=== PATIENT | female | born 1995 | race Caucasian/White ===

== ENCOUNTER 2021-11-02 18:52 | Inpatient (IN) ==
[2021-11-02] MEDS ORDERED: ceFAZolin 2000MG 2,000 MG/15 ML SYR IV STA (19:08)
[2021-11-02] MEDS ORDERED: OXYTOCIN 30 UNITS/500 ML BAG IV PRN (19:08)
[2021-11-02] MEDS: LACTATED RINGER'S 1,000 ML IV PRN ×2 (19:16→20:52)
--- NOTE | 2021-11-02 19:17 | History & Physical Report ---
Date of Service November 02, 2021 Assessment & Plan (1) with 39 completed weeks gestation: (2) Group beta Strep positive: (3) PROM (premature rupture of membranes): Plan: admit, iv, labs. variables improved with position change. plan ivf bolus as well. likely will request epidural. History of Present Illness Chief Complaint: PROM 540p Primary Care Provider: [facility] 26yo at 39+wks ega presents to L&D with cc of PROM. Pt arrived by ambulance. Apparently after calling with leaking and told to come in, was presyncopal on toilet and ambulance called. On arrival now notes contractions. Continued clear leak. Variables on monitor. PNC c/b 1. gbs pos 2. anxiety 3. epilepsy PNL rh pos, ri, gbs pos OBH: g1 GYNH: no stds Allergies Allergy/AdvReac Type Severity Reaction Status Date / Time Sulfa (Sulfonamide AdvReac Unknown Rash Verified 11/02/21 19:12 Antibiotics) Penicillins AdvReac Rash Verified 11/02/21 19:12 Home Medications Medication Instructions Recorded Confirmed Type folic acid 1 tab PO DAILY 03/20/21 11/02/21 History prenat.vits,chepe,[id number] 1 tab PO DAILY 03/20/21 11/02/21 History levetiracetam 750 mg tablet 2,000 mg PO BID tab 08/20/21 11/02/21 History (Keppra) escitalopram oxalate 5 mg tablet 10 mg PO DAILY tab 10/15/21 11/02/21 History (Lexapro) lamotrigine 200 mg tablet 500 mg PO .am tab 10/15/21 11/02/21 History (Lamictal) lamotrigine 200 mg tablet 550 mg PO PM tab 10/15/21 11/02/21 History (Lamictal) Patient History Medical History (Updated 11/02/21 @ 19:15 by Zaina Matamoros MD, FACOG) Asthma controlled, denies inhaler use Attention deficit disorder Depression Generalized idiopathic epilepsy and epileptic syndromes, not intractable, without status epilepticus follows with neuro through [facility] Surgical History (Updated 11/02/21 @ 19:11 by Cindy Woo RN) H/O adenoidectomy 2014 [place] teeth removed 1998 Family History Mother Heart disease Hypertension Father Heart disease ADHD Denies family history of Ovarian cancer Prostate cancer Breast cancer Colorectal cancer Social History (Updated 03/20/21 @ 10:05 by Lianet Cuellar, SARAY) Smoking Status: Never smoker Second Hand Exposure: No; Hx Alcohol Use: No Hx Substance Use: No Preferred Language: Jordanian Communication Ability: Effective Visual Impairment: No Limitations Hearing Ability: Normal Milk Drier Required: No Beliefs That Will Affect Care: None marital status: marital status details: Kael Newman (26) [phone] Current Living Situation: Spouse Current Living Situation Comment: Lives with , 1 dog, and 1 cat current occupational status: employed and student 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 [employer] Other Information That Helps Us Care for You: No other: Getting PhD in chemistry Feels Safe at Home: Yes Safety Concerns: Feels Safe At This Time Assistive Devices: Contacts and Glasses Review of Systems as per Subjective / HPI Physical Exam Constitutional: WD/WN, vitals as above Respiratory: normal respiratory effort, lungs clear to auscultation Cardiovascular: Rate/Rhythm: regular rate and regular rhythm Gastrointestinal (Abdomen): soft gravid nt efw 7-8# Musculoskeletal: no edema nontender calves Neurologic: grossly normal Psychiatric: A+Ox3, euthymic affect Genitourinary: OB Exam Abdomen: + vertex (by U/S) and + estimated weight (7-8#) Manual OB Exam: + cervical dilation (2), + cervical effacement 90%, + station -2 and + amniotic fluid (Gross rupture) clear OB Exam Monitor Tracing: + external FHT monitor used, + external uterine monitor used (q3), + category II, + normal FHT variability and + variable decelerations (initially deep variables, with pos change improved. ) Results & Data ([facility]) Vital Signs (Past 12 Hours) Vital Signs Temp Pulse Resp BP 11/02/21 18:54 99.3 F 83 20 124/66 Coding Level of Care Code None Diagnoses with 39 completed weeks gestation Z3A.39 Group beta Strep positive B95.1 PROM (premature rupture of membranes) O42.90
[2021-11-02] MEDS ORDERED: Patient's HEIGHT &/or WEIGHT Needed SCH (19:30)
[2021-11-02] MEDS ORDERED: BUPIVACAINE 0.25% 30 ML VIAL ONE (19:41)
[2021-11-02] MEDS ORDERED: fentaNYL citrate 100 MCG/2 ML VIAL ONE (19:41)
[2021-11-02] MEDS ORDERED: ePHEDrine sulfate 50 MG/ML AMP ONE (19:41)
[2021-11-02] MEDS ORDERED: SODIUM CHLORIDE 0.9% INJ 10 ML VIAL ONE (19:41)
[2021-11-02] MEDS ORDERED: fentaNYL 2MCG/ML ROPIVACAINE 1.25MG/ML 100 ML BAG EPI ONE (19:42)
[2021-11-02 19:43] LABS: Hematocrit (blood only) 35.9 % (37-47); Hemoglobin 11.9 g/dL (12.0-16.0); Mean Corpuscular Hemoglobin 29.8 pg (25-34); Mean Corpuscular Hgb Conc 33.1 g/dL (32-36); Mean Platelet Volume 8.7 fL (7.4-10.4); Platelet Count 323 K/uL (130-400); RDW Coefficient of Variation 13.6 % (11.5-14.5); RDW Standard Deviation 44.6 fL (36.4-46.3); Red Blood Count 3.99 M/uL (4.2-5.4); White Blood Count 11.63 K/uL (4.8-10.8)
--- NOTE | 2021-11-02 19:53 | Anesthesiology Consultation ---
Date of Service November 02, 2021 Assessment & Plan ASA ASA2 Proposed Anesthesia Anesthesia Type: Labor Epidural Risk / Benefits Reviewed With: PT / POA / Parent / Guardian, Accepts Plan and Informed Consent Obtained History Height/Weight Height: 5 ft 7 in Weight: 93.894 kg Allergies Allergy/AdvReac Type Severity Reaction Status Date / Time Sulfa (Sulfonamide AdvReac Unknown Rash Verified 11/02/21 19:12 Antibiotics) Penicillins AdvReac Rash Verified 11/02/21 19:12 Medications Home Medications Medication Instructions Recorded Confirmed Last Taken folic acid 1 tab PO DAILY 03/20/21 11/02/21 11/01/21 21:00 prenat.vits,chepe,[id number] 1 tab PO DAILY 03/20/21 11/02/21 11/01/21 21:00 levetiracetam 750 mg tablet 2,000 mg PO BID tab 08/20/21 11/02/21 11/02/21 08:00 (Keppra) escitalopram oxalate 5 mg tablet 10 mg PO DAILY tab 10/15/21 11/02/21 11/02/21 08:00 (Lexapro) lamotrigine 200 mg tablet 500 mg PO .am tab 10/15/21 11/02/21 11/02/21 08:00 (Lamictal) lamotrigine 200 mg tablet 550 mg PO PM tab 10/15/21 11/02/21 11/01/21 20:00 (Lamictal) Active Medications Generic Name Dose Route Start Last Admin Trade Name Freq PRN Reason Stop Dose Admin Lactated Ringer's 1,000 mls @ 125 mls/hr 11/02/21 19:08 11/02/21 19:46 Lr IV 11/04/21 19:07 125 mls/hr .Q8H PRN Infusion L&D Protocol Protocol Past Medical History Medical History (Updated 11/02/21 @ 19:15 by Zaina Matamoros MD, FACOG) Asthma controlled, denies inhaler use Attention deficit disorder Depression Generalized idiopathic epilepsy and epileptic syndromes, not intractable, w ithout status epilepticus follows with neuro through [facility] Exercise / Class Metabolic Activity II 4-5 Yardwork/Stairs/Walk up hill Past Family History Family History Mother Heart disease Hypertension Father Heart disease ADHD Denies family history of Ovarian cancer Prostate cancer Breast cancer Colorectal cancer Past Surgical History Surgical History (Updated 11/02/21 @ 19:11 by Cindy Woo RN) H/O adenoidectomy 2015 [place] teeth removed 1998 Past Anesthesia History No Hx of Anesthesia Complications and No Family Hx of Anesthesia Complications History of PONV No Hx of PONV and No Hx of Motion Sickness Social History Smoking Status: Never smoker Hx Alcohol Use: No Hx Substance Use: No substance use type: does not use Review of Systems denies fever/cough/ colds/ chest pain/ SOB/ ALEIDA denies ALEIDA Physical Exam Vital Signs Last Vital Signs Temp 37.4 C 11/02/21 19:15 Pulse 100 H 11/02/21 19:51 Resp 20 11/02/21 19:15 BP 124/66 11/02/21 19:15 Pulse Ox 100 11/02/21 19:51 ENMT Mouth: no TMJ abnormality and no dentition abnormality Thyromental Distance: > or= 3.5 Finger Breadths Mallampati Class: II Neck neck extension not limited Respiratory normal respiratory effort; no respiratory distress Auscultation: lungs clear to auscultation bilaterally Cardiovascular Rate/Rhythm: regular rate and regular rhythm Neurologic moves all extremities Psychiatric Orientation: alert and oriented x 3 Testing Laboratory Results 11/02/21 19:25
[2021-11-02] MEDS ORDERED: NALOXONE HCL 1 MG in SODIUM CHLORIDE 0.9% 1000ML 1,000 ML IV PRN (19:55)
[2021-11-02] MEDS ORDERED: ePHEDrine sulfate 50 MG/ML AMP IV PRN (19:55)
[2021-11-02] MEDS ORDERED: diphenhydrAMINE 50 MG/ML VIAL IV PRN (19:55)
[2021-11-02] MEDS ORDERED: fentaNYL 2MCG/ML ROPIVACAINE 1.25MG/ML 100 ML BAG EPI PRN (19:55)
[2021-11-02] MEDS ORDERED: NALOXONE HCL 0.4 MG/1 ML VIAL/CARP IV PRN (19:55)
[2021-11-02] MEDS ORDERED: NALBUPHINE HCL INJ 10 MG/ML AMP IV PRN (19:55)
--- NOTE | 2021-11-02 20:46 | Labor Progress Brief Note ---
Date of Service November 02, 2021 Subjective ctsp due to variable decels. pt did get her epidural and when nurse tried to remove O2, decels restarted. Assessment & Plan (1) with 39 completed weeks gestation: (2) Group beta Strep positive: (3) PROM (premature rupture of membranes): Plan: bolus started, o2 applied and position change, fhts improving. variables are relieved. iupc placed in case of need to try amnioinfusion. will also be able to assess strength of this spont labor pattern which so far seems adequate by mvu's in this first 10min. explained all to couple and possible need for c/s has been discussed this time and when she first arrived due to early labor and variables. Admission and Anticipated Discharge Date Admission Date: November 02, 2021 Physical Exam Constitutional: WD/WN, vitals as above Genitourinary: Manual OB Exam: + cervical dilation (with ctx) 3 cm, + cervical effacement 100%, + station -2 and + amniotic fluid (forebag arom) clear OB Exam Monitor Tracing: + external FHT monitor used, + external uterine monitor used (q2 spont labor), + intra-uterine pressure catheter used (placed to consider amnioinfusion.), + category II, + normal FHT variability and + variable decelerations now after iupc placed looks like baseline 140 and ?early decels Results & Data ([facility]) Vital Signs (Past 12 Hours) Vital Signs Temp Pulse Resp BP Pulse Ox 11/02/21 20:37 98 H 100 11/02/21 20:34 94 H 116/61 11/02/21 20:32 105 H 100 11/02/21 20:28 93 H 113/62 11/02/21 20:27 100 H 100 11/02/21 20:22 100 H 99 11/02/21 20:21 108 H 109/58 L 11/02/21 20:19 101 H 115/60 11/02/21 20:18 104 H 115/63 11/02/21 20:17 104 H 100 11/02/21 20:15 97 H 129/75 11/02/21 20:12 93 H 100 11/02/21 20:07 100 H 100 11/02/21 20:02 110 H 100 11/02/21 19:56 104 H 100 06/05/22 19:51 100 H 100 11/02/21 19:15 99.3 F 83 20 124/66 11/02/21 18:54 99.3 F 83 20 124/66 Coding Level of Care Code None Diagnoses with 39 completed weeks gestation Z3A.39 Group beta Strep positive B95.1 PROM (premature rupture of membranes) O42.90
[2021-11-02] MEDS ORDERED: OR MISCELLANEOUS MED XX ONE (21:11)
[2021-11-02] MEDS ORDERED: lamoTRIgine 25 MG TAB PO SCH (21:30)
[2021-11-02] MEDS: lamoTRIgine 100 MG TAB PO SCH (21:44)
[2021-11-02] MEDS: levETIRAcetam 500 MG TAB PO SCH (21:47)
--- NOTE | 2021-11-03 | Labor Progress Brief Note ---
Date of Service November 02, 2021 Subjective comfortable Assessment & Plan (1) with 39 completed weeks gestation: (2) Group beta Strep positive: (3) PROM (premature rupture of membranes): Plan: good cx change. fetus tolerating labor, fhts categ 1. stable. Admission and Anticipated Discharge Date Admission Date: November 02, 2021 Physical Exam Constitutional: WD/WN, vitals as above Genitourinary: Manual OB Exam: + cervical dilation 6 cm, + cervical effacement (100) and + station 0 OB Exam Monitor Tracing: + external FHT monitor used, + intra-uterine pressure catheter used (q2 adequate mvu's spont pattern), + category I and + normal FHT variability Results & Data ([facility]) Vital Signs (Past 12 Hours) Vital Signs Temp Pulse Resp BP Pulse Ox 11/02/21 23:57 112 H 96 11/02/21 23:52 104 H 94 11/02/21 23:47 108 H 95 11/02/21 23:44 107 H 114/63 11/02/21 23:42 104 H 95 11/02/21 23:37 100 H 94 11/02/21 23:32 107 H 94 11/02/21 23:30 18 11/02/21 23:27 106 H 95 11/02/21 23:22 105 H 95 11/02/21 23:17 104 H 95 11/02/21 23:13 107 H 112/60 11/02/21 23:12 105 H 94 11/02/21 23:07 106 H 95 11/02/21 23:02 102 H 95 11/02/21 23:00 16 11/02/21 22:59 98 H 120/64 11/02/21 22:57 99 H 95 11/02/21 22:52 102 H 96 11/02/21 22:47 100 H 96 11/02/21 22:44 100 H 117/64 11/02/21 22:42 103 H 95 11/02/21 22:37 102 H 98 11/02/21 22:32 100 H 99 11/02/21 22:30 18 11/02/21 22:28 108 H 122/72 11/02/21 22:27 97 H 100 11/02/21 22:26 99.1 F 11/02/21 22:22 100 H 99 11/02/21 22:17 98 H 100 11/02/21 22:15 96 H 121/70 11/02/21 22:12 95 H 100 11/02/21 22:07 97 H 100 11/02/21 22:02 97 H 100 11/02/21 22:00 16 11/02/21 21:58 93 H 122/68 11/02/21 21:57 89 100 11/02/21 21:52 86 100 11/02/21 21:47 92 H 99 11/02/21 21:44 88 125/70 11/02/21 21:42 89 100 11/02/21 21:37 92 H 100 11/02/21 21:32 84 100 11/02/21 21:30 92 H 16 128/77 11/02/21 21:27 105 H 100 11/02/21 21:22 94 H 100 11/02/21 21:17 99 H 100 11/02/21 21:13 101 H 120/69 11/02/21 21:12 93 H 100 11/02/21 21:10 97 H 91 11/02/21 21:07 98 H 100 11/02/21 21:02 97 H 100 11/02/21 21:00 20 11/02/21 20:59 96 H 115/65 11/02/21 20:57 99 H 100 11/02/21 20:52 95 H 100 11/02/21 20:47 101 H 100 11/02/21 20:43 98.8 F 96 H 110/56 L 11/02/21 20:42 98 H 100 11/02/21 20:38 99 H 116/57 L 11/02/21 20:37 98 H 100 11/02/21 20:34 94 H 116/61 11/02/21 20:32 105 H 100 11/02/21 20:30 18 11/02/21 20:28 93 H 113/62 11/02/21 20:27 100 H 100 11/02/21 20:22 100 H 99 11/02/21 20:21 108 H 109/58 L 11/02/21 20:19 101 H 115/60 11/02/21 20:18 104 H 115/63 11/02/21 20:17 104 H 100 11/02/21 20:15 97 H 129/75 11/02/21 20:12 93 H 100 06/05/22 20:07 100 H 100 11/02/21 20:02 110 H 100 11/02/21 19:56 104 H 100 11/02/21 19:51 100 H 100 11/02/21 19:15 99.3 F 83 20 124/66 11/02/21 18:54 99.3 F 83 20 124/66 Coding Level of Care Code None Diagnoses with 39 completed weeks gestation Z3A.39 Group beta Strep positive B95.1 PROM (premature rupture of membranes) O42.90
[2021-11-03] MEDS ORDERED: NURSING L&D Epidural Breakthrough Pain Update ONE (00:17)
[2021-11-03] MEDS ORDERED: fentaNYL citrate 100 MCG/2 ML VIAL ONE (00:57)
[2021-11-03] MEDS ORDERED: BUPIVACAINE 0.25% 30 ML VIAL ONE (00:58)
--- NOTE | 2021-11-03 01:17 | Communication Note ---
Date of Service: November 03, 2021 pt has had to stay on her right side because of baby intolerance to other positions. pt is c/o increased pain. i bolused 5mL of .25% bupivicaine + 100 mcg of fentanyl. pt improvement of symptoms.
[2021-11-03] MEDS ORDERED: ceFAZolin 1000MG 1,000 MG/7.5 ML SYR IV PRN (02:08)
[2021-11-03] MEDS ORDERED: LIDOCAINE 1% LOCAL 20 ML VIAL ONE (04:30)
--- NOTE | 2021-11-03 04:45 | Delivery Summary ---
Vaginal Delivery Summary Date of Service November 03, 2021 Vaginal Delivery Summary and 2nd Degree LAC The patient dilated to complete and pushed to deliver a viable male infant Apgars 8 and 9 via over 2nd degree perineal laceration. Mouth and nose bulb suctioned at perineum. Shoulders and body delivered with ease. Infant was vigorous and crying at . Cord clamped at 30 seconds of life and to maternal abdomen where the cord was then doubly clamped and cut. Placenta delivered spontaneously and intact, three-vessel cord. Hemostasis achieved with dilute pitocin and uterine massage and drainage of the bladder for approximately 300 cc under sterile conditions. Cervix and sulci intact. Laceration repaired after 1% local lidocaine anesthesia to include the 2nd degree perineal laceration in routine fashion, layers and reapproximation of left labial laceration. EBL 500 cc. Mother and baby stable in recovery. [facility] Vaginal Delivery Charge Delivery Type Details: and 2nd Degree LAC
[2021-11-03] MEDS ORDERED: bisacodyL 10 MG SUPP PR PRN (04:55)
[2021-11-03] MEDS ORDERED: OXYTOCIN 30 UNITS/500 ML BAG IV PRN (04:55)
[2021-11-03] MEDS ORDERED: DIPHTHERIA/TETANUS/PERTUSSIS 0.5 ML SYR/VIAL IM ONE (04:55)
[2021-11-03] MEDS ORDERED: HYDROCORTISONE ACETATE 25 MG SUPP PR PRN (04:55)
[2021-11-03] MEDS ORDERED: oxyCODONE/ACETAMINOPHEN 5mg/325mg TAB PO PRN (04:55)
[2021-11-03] MEDS ORDERED: ACETAMINOPHEN 325 MG TAB PO PRN (04:55)
[2021-11-03] MEDS ORDERED: OXYTOCIN 20 UNITS in LACTATED RINGER'S 1,000 ML IV SCH (04:55)
[2021-11-03] MEDS ORDERED: BENZOCAINE 20% AER SPR 82.5 GM CAN EXT PRN (04:55)
[2021-11-03] MEDS: IBUPROFEN 600 MG TAB PO PRN ×4 (05:17→18:24)
[2021-11-03] MEDS: PRENATAL VITAMIN 1 TAB PO SCH (09:20)
[2021-11-03] MEDS: ESCITALOPRAM OXALATE 10 MG TAB PO SCH (09:20)
[2021-11-03] MEDS: DOCUSATE SODIUM 100 MG CAP PO SCH ×2 (09:21→19:45)
[2021-11-03] MEDS: levETIRAcetam 500 MG TAB PO SCH ×2 (09:36→19:44)
[2021-11-03] MEDS: lamoTRIgine 100 MG TAB PO SCH ×2 (09:36→19:44)
--- NOTE | 2021-11-03 10:26 | Anesthesia Procedure Note ---
Date of Service November 03, 2021 Anesthesia Post Epidural Note Vital Signs Vital Signs: Temp Pulse Resp BP Pulse Ox 98.6 F 91 H 16 112/57 L 98 11/03/21 07:05 11/03/21 07:12 11/03/21 07:05 11/03/21 07:12 11/03/21 04:42 Pain Intensity Left Hip: Pain Intensity: 0 Episiotomy/Laceration: Pain Intensity: 2 Notes Mental Status: alert / awake / arousable and participated in evaluation Nausea / Vomiting: adequately controlled Pain: adequately controlled Airway Patency, RR, SpO2: stable & adequate BP & HR: stable & adequate Hydration State: stable & adequate Neuraxial Anesthesia: was administered and sensory block is resolving Anesthetic Complications: no major complications apparent and Pt Satisfied with anesthetic care Epidural: Removed without complications and With tip intact
--- NOTE | 2021-11-04 08:39 | Obstetrical Progress Note ---
Date of Service November 04, 2021 Assessment & Plan (1) Encounter for care and examination after delivery: Plan: 26yo PPD 1 s/p at 39 weeks -Continue routine care -Vitals reviewed- HDS, afebrile -GBS positive tx w/ cefazolin x1 -Encourage ambulation, regular diet -Pain control with ibuprofen, acetaminophen PRN -Encourage -Hgb 11.9 --> pending (11/04) -ok for discharge pending stable H&H -f/u in 6 weeks with OB after discharge (2) Epilepsy affecting : Plan: -on keppra and lamictal -patient discussed post doses with her physician -new doses keppra 1500mg qAM, 2000mg qPM; lamictal 400mg BID Admission and Anticipated Discharge Date Admission Date: November 02, 2021 Supervising Physician Co-Signing Physician Notes Patient seen and evaluated with resident and agree with the above findings and plan. Doing well. Routine care Subjective Ambulation: yes Voiding: yes Passing Gas: yes BM: no Diet Tolerance: regular, denies N/V Lochia: small Feeding Type: Current Pain Level(1-10): 2 Review of Systems Review of Systems: Denies fevers/chills. Denies dyspnea, cough. Denies chest pain. Denies dysuria. Denies headache. Denies back pain. Physical Exam Physical Exam: General: Alert, oriented, no acute distress Cardiac: Regular rate and rhythm, normal S1, S2. No murmurs appreciated. Respiratory: Clear to auscultation b/l with good air flow entry, symmetric chest rise and fall. No wheezes or crackles. No increased work of breathing or accessory muscle use Abdomen: Soft, mildly tender RUQ otherwise no abdominal/fundal tenderness, nondi stended. Fundus firm and palpable at 1 cm below umbilicus. No guarding or rebound. Skin: No rashes or lesions Extremities: Warm, dry, well-perfused with capillary refill <2s b/l. No lower extremity edema, erythema or swelling. Negative Kareem's sign b/l. Results & Data ([facility]) Vital Signs (Past 12 Hours) Vital Signs Temp Pulse Resp BP Pulse Ox 11/04/21 04:25 36.9 C 72 14 113/72 96 11/03/21 23:00 37.0 C 86 18 110/71 96 Resident Activity Tracking Resident Involvement: Resident Care Provided Care Provided: OB Delivery
--- NOTE | 2021-11-04 08:49 | Communication Note ---
Date of Service: November 04, 2021 Per patient as advised from her physician she follows with for her epilepsy. s/p delivery: Days 1-3: keppra 1500mg qAM, 2000mg aPM; Lamictal 400mg BID Days 4-7: keppra 1500mg BID; Lamictal 300mg BID Patient states her provider will write her new dosing scripts following discharge. Resident Activity Tracking Resident Involvement: Resident Care Provided Care Provided: OB Delivery
[2021-11-04] MEDS ORDERED: levETIRAcetam 500 MG TAB PO SCH (09:00)
[2021-11-04 09:36] LABS: Hematocrit (blood only) 31.3 % (37-47); Hemoglobin 10.2 g/dL (12.0-16.0)
[2021-11-04] MEDS: IBUPROFEN 600 MG TAB PO PRN ×3 (09:57→21:16)
[2021-11-04] MEDS: PRENATAL VITAMIN 1 TAB PO SCH (09:57)
[2021-11-04] MEDS: lamoTRIgine 100 MG TAB PO SCH ×2 (09:59→21:26)
[2021-11-04] MEDS: DOCUSATE SODIUM 100 MG CAP PO SCH ×2 (09:59→21:16)
[2021-11-04] MEDS: levETIRAcetam 500 MG TAB PO SCH ×2 (10:00→21:27)
[2021-11-04] MEDS: ESCITALOPRAM OXALATE 10 MG TAB PO SCH (14:09)
--- NOTE | 2021-11-05 06:38 | Obstetrical Progress Note ---
Date of Service November 05, 2021 Assessment & Plan (1) Encounter for care and examination after delivery: Plan: 26yo PPD 2 s/p at 39 weeks -Continue routine care -Vitals reviewed- HDS, afebrile -GBS positive treated w/ cefazolin x1 -Encourage ambulation, regular diet -Pain control with ibuprofen, acetaminophen PRN -Encourage -Hgb 10.2 (6/8) -f/u in 6 weeks with OB after discharge (2) Epilepsy affecting : Plan: -on keppra and lamictal -patient discussed post doses with her neurologist -continue new doses days 1-3 s/p delivery keppra 1500mg qAM, 2000mg qPM; lamictal 400mg BID -days 4-7: keppra 1500mg BID; Lamictal 300mg BID -f/u with neurology Admission and Anticipated Discharge Date Admission Date: November 02, 2021 Supervising Physician Co-Signing Physician Notes Resident Physician Supervision Note: I interviewed and examined the patient. Discussed with Dr. Lopez and agree with findings and plan as documented in the note. Any exceptions or clarifications are listed here: PP2 s/p , doing well. Stable for d/c home today Documented By: Mahsa Murdock MD Subjective Ambulation: yes Voiding: yes Passing Gas: yes BM: no Diet Tolerance: regular, denies N/V Lochia: small Feeding Type: Current Pain Level(1-10): 1 Review of Systems Review of Systems: Denies fevers/chills. Denies dyspnea, cough. Denies chest pain. Denies dysuria. Denies headache. Denies back pain. Physical Exam Physical Exam: General: Alert, oriented, no acute distress Cardiac: Regular rate and rhythm, normal S1, S2. No murmurs appreciated. Respiratory: Clear to auscultation b/l with good air flow entry, symmetric chest rise and fall. No wheezes or crackles. No increased work of breathing or accessory muscle use Abdomen: Soft, nontender, nondistended. Fundus firm and palpable at 2 cm below umbilicus. No guarding or rebound. Skin: No rashes or lesions Extremities: Warm, dry, well-perfused with capillary refill <2s b/l. No lower extremity edema, erythema or swelling. Negative Kareem's sign b/l. Results & Data ([facility]) Vital Signs (Past 12 Hours) Vital Signs Temp Pulse Resp BP Pulse Ox 11/04/21 23:30 36.9 C 82 16 106/67 95 11/04/21 20:10 37.2 C 83 18 118/70 96 Resident Activity Tracking Resident Involvement: Resident Care Provided Care Provided: OB Delivery
[2021-11-05] MEDS: levETIRAcetam 500 MG TAB PO SCH (08:20)
[2021-11-05] MEDS: PRENATAL VITAMIN 1 TAB PO SCH (08:22)
[2021-11-05] MEDS: DOCUSATE SODIUM 100 MG CAP PO SCH (08:22)
[2021-11-05] MEDS: lamoTRIgine 100 MG TAB PO SCH (08:24)
[2021-11-05] MEDS: ESCITALOPRAM OXALATE 10 MG TAB PO SCH (08:25)
== END 2021-11-05 14:45 | disposition home or self-care (01) | DRG 806 ==
LOC: OPB 18:52 → 4S1 18:53 → 4E2 11-03 08:14